=== PATIENT | male | born 1960 | race Caucasian/White ===

== ENCOUNTER 2016-09-06 12:05 | Inpatient (IN) | payer OTHER, MEDICAID ==
[~2016-09-06] VITALS: Ht 175.3 cm; Wt 76.0 kg
[2016-09-06] VITALS (19 sets, daily range): BP systolic 149–171; BP diastolic 55–90; PULSE 70–126; RESP 22–24; TEMP 93; Ht 175.3 cm; Wt 76.0 kg
[~2016-09-06 12:05] MED LIST: ETOMIDATE 20 MG INJ ONE; LIDOCAINE 100 MG SYRINGE ONE; VECURONIUM 10 MG VIAL ONE
[2016-09-06] MEDS ORDERED: WARF3TAB PO (12:16)
[2016-09-06] MEDS ORDERED: SILD50TA36 PO (12:16)
[2016-09-06] MEDS ORDERED: PRAV20TA63 PO (12:17)
[2016-09-06] MEDS ORDERED: PANT40TA3 PO (12:17)
[2016-09-06] MEDS ORDERED: LANT3I SC (12:17)
[2016-09-06] MEDS ORDERED: TORS100T15 PO (12:17)
[2016-09-06] MEDS ORDERED: CARV25TA79 PO (12:18)
[2016-09-06] MEDS ORDERED: COLC0.6T6 PO (12:18)
[2016-09-06] MEDS ORDERED: ALLO300T2 PO (12:18)
[2016-09-06] MEDS ORDERED: POTA8CAP PO (12:19)
[2016-09-06] MEDS ORDERED: SOD CHLORIDE 0.9% 500 ML IV STA (12:19)
[2016-09-06] MEDS ORDERED: FER325 PO (12:19)
[2016-09-06] MEDS ORDERED: ASC250 PO (12:21)
[2016-09-06] MEDS ORDERED: INSU200I SQ (12:21)
[2016-09-06 12:26] LABS: ADD SCAN DIFF NO
[2016-09-06 12:29] LABS: BASOPHILS % 0.4 % (0.0-2.0); EOSINOPHILS # 0.3 10^3/ul (0.0-0.5); EOSINOPHILS % 2.7 % (0.0-7.0); HEMATOCRIT 35.9 % (42.0-52.0); HEMOGLOBIN 11.7 g/dl (14.0-18.0); LYMPHOCYTES # 2.8 10^3/ul (0.8-2.9); LYMPHOCYTES % 24.5 % (15.0-51.0); MEAN CORPUSCULAR HEMOGLOBIN 28.8 pg (29.0-33.0); MEAN CORPUSCULAR HGB CONC 32.6 g/dl (32.0-37.0); MEAN CORPUSCULAR VOLUME 88.4 fl (82.0-101.0); MEAN PLATELET VOLUME 10.4 fl (7.4-10.4); MONOCYTE # 1.3 10^3/ul (0.3-0.9); MONOCYTES % 11.6 % (0.0-11.0); NEUTROPHIL # 6.8 10^3/ul (1.6-7.5); NEUTROPHILS % 60.2 % (39.0-77.0); PLATELET COUNT 196 10^3/UL (140-415); RED BLOOD COUNT 4.06 10^6/ul (4.70-6.10); RED CELL DISTRIBUTION WIDTH 16.6 % (11.5-14.5); WHITE BLOOD COUNT 11.3 10^3/ul (4.8-10.8)
[2016-09-06 12:44] LABS: INR 4.25; PROTIME 41.6 Sec (12.2-14.2); PT RATIO 3.3
[2016-09-06 12:45] LABS: PARTIAL THROMBOPLASTIN TIME 57.1 Sec (25.0-35.0)
--- NOTE | 2016-09-06 12:52 | RADRPT ---
PROCEDURE: CT brain without contrast CLINICAL INDICATION: Code stroke, unresponsive on blood thinners TECHNIQUE: CT of the brain without contrast was performed on a multidetector CT scanner, with multi planar reformats. One or more of the following dose reduction techniques were used: Automated expos ure control, adjustment in mA and / or kV according to patient size, use of iterative reconstructive technique. CTDIvol = 44 mGy; DLP = 720 mGy-cm. COMPARISON: None available FINDINGS: There is a large area of heterogeneous, acute intraparenchymal hemorrhage in the left frontal - radha etal lobes measuring up to approximately 9.2 x 5.5 x 6.1 cm in extent with mild surrounding edema. Hemorrhage extends into the lateral ventricles, left greater than right, and third ventricle. There is significant mass effect with partial effacement of the lateral ventricles, left greater than rig ht, and third ventricle, and rightward subfalcine herniation with shift of the midline structures me asuring up to approximately 1.9 cm. Cerebral sulci are effaced and the basal cisterns are partially effaced. There is moderate right and mild left temporal horn dilation which may reflect hydrocepha david/trapped ventricles. No extra-axial fluid collection is seen. There is a small area of encephalomalacia in the right fro ntal lobe. There is a wide right frontal - parietal - temporal craniotomy. Atherosclerotic calcifi cations of the intracranial internal carotid arteries are noted. Mastoid air cells and imaged paran johnny sinuses grossly clear. IMPRESSION: 1. Large acute left frontal-parietal intraparenchymal hemorrhage with extension into the left and t he right lateral and third ventricles. 2. Rightward subfalcine herniation, with 1.9 cm rightward midline shift. 3. Moderate right and mild left temporal horn dilation which may reflect hydrocephalus/trapped vent ricles. 4. Status post right frontal - temporal - parietal craniotomy with underlying small area of encepha lomalacia in the right frontal lobe. Critical results were called to Dr. Brewer at 12:43 p.m., 09/06/2016 RPTAT: EE .Malachi Gutierrez MD, MD Date Time Electronically viewed and signed by .Malachi Gutierrez MD, MD on 09/06/2016 12:51 .O/
[2016-09-06] MEDS ORDERED: ALBU8.5H3 INH (12:53)
[2016-09-06] MEDS ORDERED: ASPI-664 PO (12:53)
[2016-09-06] MEDS ORDERED: ATOR40TA68 PO (12:54)
[2016-09-06] MEDS ORDERED: BUME2TAB PO (12:54)
[2016-09-06] MEDS ORDERED: [UNRECOGNIZED DRUG - CODE] PO (12:55)
[2016-09-06] MEDS ORDERED: GABA100C14 PO (12:58)
[2016-09-06] MEDS ORDERED: MANNITOL 25% 50 ML INJ IV* ONE (13:00)
[2016-09-06] MEDS ORDERED: PHYTONADIONE 10 MG in DEXTROSE 5% 50 ML IVPB ONE (13:00)
[2016-09-06] MEDS ORDERED: LEVETIRACETAM 1000 MG (PMX) 100 ML IVPB ONE (13:00)
[2016-09-06] MEDS ORDERED: [UNRECOGNIZED DRUG - OTHER] PO (13:03)
[2016-09-06] MEDS ORDERED: METO25TA4 PO (13:04)
[2016-09-06] MEDS ORDERED: TRAZ50TA18 PO (13:06)
[2016-09-06] MEDS ORDERED: SILD20TA PO (13:06)
[2016-09-06] MEDS ORDERED: FOLI1CAP PO (13:06)
--- NOTE | 2016-09-06 13:06 | RADRPT ---
PROCEDURE: XR Chest. CLINICAL INDICATION: Possible stroke. TECHNIQUE: Single frontal view of the chest was obtained. COMPARISON: None FINDINGS: The soft tissues are normal. A mediastinotomy was performed. There is a dual chamber cardiac pacem michael implanted over the upper right chest wall with electrode leads projecting at the level of the r ight atrium and right ventricle. Vascular processes are identified in place. The left ventricle is enlarged. The cardiomediastinal silhouette and hilar structures are otherwise normal. The pulmonar y vasculature is equilibrated. There are vascular calcifications in the aortic arch. An endotrache al tube is well-positioned at T3-T4. An NG tube is positioned with its distal tip at the level of t he GE junction and should be advanced further into the stomach. Increased interstitial markings in t he right lower lung field are likely result of atelectasis. There is some thickening on the right p leural space in the area of the periphery of the minor fissure. The costophrenic angles are normal. IMPRESSION: 1. Cardiomegaly with equilibration the pulmonary vasculature which may reflect mild pulmonary venous obstruction. 2. Thickening of the minor fissure and thickening of the lower right pleural space. Findings could relate to either pleural scarring or small effusion. 3. Atherosclerotic vascular disease. 4. Dual chamber cardiac pacemaker. 5. Status post median sternotomy with prosthetic heart valve replacements. 7. The NG tube breast above the GE junction and should be advanced 7 or 8 cm for better positioning distal to the GE junction. 8. The endotracheal tube is well-positioned T3-T4. 9. Findings were phoned to the emergency room to Dr. Brewer. RPTAT:AAJJ Physician Shoaib Date Time Electronically viewed and signed by Physician Shoaib on 09/06/2016 13:05 /
[2016-09-06] MEDS ORDERED: WARF5TAB72 PO (13:07)
[2016-09-06 13:12] LABS: CALCIUM 9.7 mg/dl (8.4-10.2); CREATININE 3.56 mg/dl (0.61-1.24); TROPONIN-I 0.055 ng/ml (0.00-0.12)
[2016-09-06 13:18] LABS: ADD UMIC YES; URINE BILIRUBIN (Dip) NEGATIVE (NEGATIVE); URINE BLOOD (Dip) 2+ (NEGATIVE); URINE COLOR LT. YELLOW (YELLOW); URINE GLUCOSE (Dip) NEGATIVE (NEGATIVE); URINE KETONES (Dip) NEGATIVE (NEGATIVE); URINE LEUKOCYTE ESTERASE (Dip) NEGATIVE (NEGATIVE); URINE NITRITE (Dip) NEGATIVE (NEGATIVE); URINE TOTAL PROTEIN (Dip) TRACE (NEGATIVE); URINE UROBILINOGEN (Dip) 0.2 E.U./dL (0.1-1.0)
[2016-09-06 13:27] LABS: POTASSIUM 2.5 mmol/L (3.5-5.1)
[2016-09-06] MEDS ORDERED: MANNITOL 20% 250 ML IV ONE ×2 (13:30→15:00)
[2016-09-06] MEDS ORDERED: MANNITOL 25% IV ONE (13:30)
[2016-09-06 13:39] LABS: BARBITURATES NEGATIVE (NEGATIVE); BENZODIAZEPINES NEGATIVE (NEGATIVE); CANNABINOIDS NEGATIVE (NEGATIVE); COCAINE NEGATIVE (NEGATIVE); OPIATES NEGATIVE (NEGATIVE)
[2016-09-06 13:41] LABS: AADO2 Arterial 155.8 mmHg (7.0-24.0); Allen Test ACCEPTAB; Arterial Base Excess 8.4 mmol/L (-3.0-3); Arterial COHb 0.6 % (0.0-3.0); Arterial Fraction of Oxyhgb 98.9 % (93.0-99.0); Arterial HCO3 28.9 mmol/L (22.0-26.0); Arterial MetHb 0.5 % (0.0-1.5); Arterial Total Hemglobin 11.7 g/dl (12.0-18.0); MODE VENT - AC
--- NOTE | 2016-09-06 13:47 | ERA ---
ER Documentation Chief Complaint Date/Time DATE: 09/06/16 TIME: 12:47 Chief Complaint facial and right sided droop since 8am, present unresponsive HPI This is a 56-year-old male who, according to his , says that he woke up around 8:00 this morning and they had breakfast together. She stated he complained that he did not feel well around 10:00 so he went to get on the couch to lay down. He wanted to check his blood sugars so she gave him the glucose monitor and she said that he had a hard time understanding how to use it and was starting to get confused. She said over the course of an hour his mental status started to decline with confused speech and garbled speech and right-sided deficits. This apparently occurred over the course of an hour from 10 AM to 11 AM. When he arrives by EMS he is sonorous with a GCS of 3. Patient had a mechanical mitral valve replaced a few years ago then had an aortic valve replaced with a cow valve at [facility] on July 24. He was discharged after 2 weeks then return there for anemia and was discharged last Saturday after some blood transfusions. The says his INR was checked yesterday and was 3.0 ROS All systems reviewed and are negative except as per history of present illness. Medications Home Meds Reported Medications Ascorbic Acid (Vitamin C) 250 Mg Tab, 250 MG PO DAILY, TAB 09/06/16 Insulin Lispro (Humalog Kwikpen) 200 Unit/1 Ml Insuln.pen, 10 UNIT SQ PRN Y for BEFORE MEALS, EA 09/06/16 Ferrous Sulfate* (Ferrous Sulfate*) 325 Mg Tabec, 325 MG PO DAILY, TAB 09/06/16 Potassium Chloride* (Potassium Chloride*) 8 Meq Capsule.er, 8 MEQ PO DAILY, CAP 09/06/16 Colchicine* (Colcrys*) 0.6 Mg Tablet, 0.6 MG PO DAILY Y for GOUT, TAB 09/06/16 Allopurinol* (Allopurinol*) 300 Mg Tablet, 300 MG PO DAILY, TAB 09/06/16 Carvedilol* (Carvedilol*) 25 Mg Tablet, 25 MG PO BID, #60 TAB 09/06/16 Insulin Glargine* (Lantus*) 100 Unit/Ml Soln, 30 UNIT SC QHS, #1 VIAL 09/06/16 Pravastatin Sodium* (Pravastatin Sodium*) 20 Mg Tablet, 20 MG PO HS, TAB 09/06/16 Pantoprazole* (Protonix*) 40 Mg Tablet.dr, 40 MG PO BID, TAB 09/06/16 Torsemide (Torsemide) 100 Mg Tablet, 100 MG PO TID, TAB 09/06/16 Sildenafil Citrate* (Viagra*) 50 Mg Tablet, 50 MG PO TID, TAB 09/06/16 Warfarin Sodium* (Coumadin*) 3 Mg Tablet, 3 MG PO DAILY, TAB 09/06/16 FmHx Family History: No coronary disease Physical Exam Vitals Vital Signs Date Time Temp Pulse Resp B/P Pulse Ox O2 Delivery O2 Flow Rate FiO2 09/06/16 12:37 87 16 167/98 93 Mechanical Ventilator 09/06/16 12:37 Bag Valve Mask 09/06/16 12:37 88 16 100 100 09/06/16 12:24 107 16 165/125 98 Physical Exam Const: Well-developed, well-nourished Head: Atraumatic, normocephalic Eyes: Normal Conjunctiva, bilateral pupils mid range and slow to react , normal sclera, no nystagmus ENT: Normal External Ears, Nose and Mouth, moist mucus membranes. Neck: No meningismus, no lymphadenopathy.] Resp: Clear to auscultation bilaterally, no wheezing, rhonchi, rales, sonorous respiration Cardio: Irregular rate and rhythm, no murmurs, S1 S2 present Abd: Soft, non distended. Normal bowel sounds, no pulsitile abdominal masses or bruits Skin: No petechiae or rashes, no ecchymosis , no maculopapular rash Back: [Normal inspection Ext: No cyanosis, or edema,normal inspection, vascularly intact x 4 Neur: [GCS of 3, obtunded Psych: Unable to obtain Result Diagram: 09/06/16 1215 Results 24 hrs Laboratory Tests Test 09/06/16 12:15 White Blood Count 11.310^3/ul Red Blood Count 4.0610^6/ul Hemoglobin 11.7g/dl Hematocrit 35.9% Mean Corpuscular Volume 88.4fl Mean Corpuscular Hemoglobin 28.8pg Mean Corpuscular Hemoglobin Concent 32.6g/dl Red Cell Distribution Width 16.6% Platelet Count 85054^3/UL Mean Platelet Volume 10.4fl Neutrophils % 60.2% Lymphocytes % 24.5% Monocytes % 11.6% Eosinophils % 2.7% Basophils % 0.4% Nucleated Red Blood Cells % 0.0/100WBC Neutrophils # 6.810^3/ul Lymphocytes # 2.810^3/ul Monocytes # 1.310^3/ul Eosinophils # 0.310^3/ul Basophils # 0.010^3/ul Nucleated Red Blood Cells # 0.010^3/ul Prothrombin Time 41.6Sec Prothrombin Time Ratio 3.3 INR International Normalized Ratio 4.25 Activated Partial Thromboplast Time 57.1Sec Current Medications Medications (Trade) Dose Ordered Sig/Jazzmine Route PRN Reason Start Time Stop Time Status Last Admin Dose Admin Sodium Chloride 500 ml @ 500 mls/hr Q1H STAT IV 09/06/16 12:19 09/06/16 13:18 09/06/16 12:36 Levetiracetam (Keppra 1,000mg/ 100ml (Pmx)) 100 ml @ 400 mls/hr ONCE ONCE IVPB 09/06/16 13:00 09/06/16 13:14 09/06/16 12:43 Procedures/MDM KG: Rate/Rhythm: Atrial fibrillation with RVR heart rate 138, inferior and anterior ST changes/depression QRS, ST, QT: NORMAL ME, QRS, QT] Impression: A. fib with RVR Due to patient's inability to maintain an airway with a GCS of 3, his gag is still intact. The decision was made to intubate him. Endotracheal Intubation by me: Pre assessment performed. See preceding note for details. Pre-oxygenation performed with 100% oxygen RSI: Performed w/o complication or hypoxic events. Medications as ordered. Blade: Mac 4 ET Tube: 7.0 cm Depth: 24 cm at the lip Intubation confirmed by colorimetric CO2, equal breath sounds, quiet over the stomach. PROCEDURE: CT brain without contrast CLINICAL INDICATION: Code stroke, unresponsive on blood thinners TECHNIQUE: CT of the brain without contrast was performed on a multidetector CT scanner, with multiplanar reformats. One or more of the following dose reduction techniques were used: Automated exposure control, adjustment in mA and / or kV according to patient size, use of iterative reconstructive technique. CTDIvol = 44 mGy; DLP = 720 mGy-cm. COMPARISON: None available FINDINGS: There is a large area of heterogeneous, acute intraparenchymal hemorrhage in the left frontal - parietal lobes measuring up to approximately 9.2 x 5.5 x 6.1 cm in extent with mild surrounding edema. Hemorrhage extends into the lateral ventricles, left greater than right, and third ventricle. There is significant mass effect with partial effacement of the lateral ventricles, left greater than right, and third ventricle, and rightward subfalcine herniation with shift of the midline structures measuring up to approximately 1.9 cm. Cerebral sulci are effaced and the basal cisterns are partially effaced. There is moderate right and mild left temporal horn dilation which may reflect hydrocephalus/ trapped ventricles. No extra-axial fluid collection is seen. There is a small area of encephalomalacia in the right frontal lobe. There is a wide right frontal - parietal - temporal craniotomy. Atherosclerotic calcifications of the intracranial internal carotid arteries are noted. Mastoid air cells and imaged paranasal sinuses grossly clear. IMPRESSION: 1. Large acute left frontal-parietal intraparenchymal hemorrhage with extension into the left and the right lateral and third ventricles. 2. Rightward subfalcine herniation, with 1.9 cm rightward midline shift. 3. Moderate right and mild left temporal horn dilation which may reflect hydrocephalus/trapped ventricles. 4. Status post right frontal - temporal - parietal craniotomy with underlying small area of encephalomalacia in the right frontal lobe. Critical results were called to Dr. Light at 12:43 p.m., 09/06/2016 RPTAT: EE .Malachi Gutierrez MD, MD Date Time Electronically viewed and signed by .Malachi Gutierrez MD, MD on 09/06/2016 12:51 .O/ CC: TREVOR LIGHT DO Spoke with Dr. East of neurosurgery. He reviewed the CT scan with me on the phone. He instructed me to give 50 g of mannitol, give 150 cc of 3% normal saline followed by 50 cc an hour drip, keep head of bed elevated, hyperventilate and try to keep PCO2 at [address] Asked me to order CT scan of head for 630 7:00 tonight Central Line Placement by me: Patient consented, sterilely draped, full prep, gown, glove, mask, time out performed. Anesthesia: 1% lidocaine locally Location: Right femoral Device: Multiple lumen Technique: Seldinger technique. Secured with suture. Results: Venous return from all ports with easy saline flush. No complications. XOXOXO Guide wire retrieved and disposed of. PROCEDURE: XR Chest. CLINICAL INDICATION: Possible stroke. TECHNIQUE: Single frontal view of the chest was obtained. COMPARISON: None FINDINGS: The soft tissues are normal. A mediastinotomy was performed. There is a dual chamber cardiac pacemaker implanted over the upper right chest wall with electrode leads projecting at the level of the right atrium and right ventricle. Vascular processes are identified in place. The left ventricle is enlarged. The cardiomediastinal silhouette and hilar structures are otherwise normal. The pulmonary vasculature is equilibrated. There are vascular calcifications in the aortic arch. An endotracheal tube is well-positioned at T3-T4. An NG tube is positioned with its distal tip at the level of the GE junction and should be advanced further into the stomach. Increased interstitial markings in the right lower lung field are likely result of atelectasis. There is some thickening on the right pleural space in the area of the periphery of the minor fissure. The costophrenic angles are normal. IMPRESSION: 1. Cardiomegaly with equilibration the pulmonary vasculature which may reflect mild pulmonary venous obstruction. 2. Thickening of the minor fissure and thickening of the lower right pleural space. Findings could relate to either pleural scarring or small effusion. 3. Atherosclerotic vascular disease. 4. Dual chamber cardiac pacemaker. 5. Status post median sternotomy with prosthetic heart valve replacements. 7. The NG tube breast above the GE junction and should be advanced 7 or 8 cm for better positioning distal to the GE junction. 8. The endotracheal tube is well-positioned T3-T4. 9. Findings were phoned to the emergency room to Dr. Light. RPTAT:AAJJ Austin Tarik, Physician Date Time Electronically viewed and signed by Austin Montanez Physician on 09/06/2016 13:05 JM/ CC: TREVOR LIGHT DO Patient's heart rate is currently 90 and in A. fib. Blood pressure is 113/80. Patient scheduled for repeat CT scan at 630 tonight. We will admit to the ICU. He is getting 4 units of fresh frozen plasma and vitamin K 10 mg IV. His hypo-coagulative statements be corrected before he can go to the operating room if he goes We will admit to the ICU Critical Care Time: 45 minutes Treatments/Evaluations: Close monitoring and treatment of unstable vital signs, cardiorespiratory, and neurologic status, while maintaining tight balance of fluid, respiratory, and cardiac interventions. This time includes discussing the case with the patient and the patient's family. This time does not include all procedures stated elsewhere in this record. This time also includes reviewing old records, labs and radiological studies. This time includes examining and re-examining the patient. Additionally, this time also includes arranging care with admitting and consulting physicians. Departure Diagnosis: Primary Impression: Intracranial hemorrhage Condition: Critical TREVOR LIGHT DO September 06, 2016 12:57
[2016-09-06] MEDS: NACL 3% 500 ML IV SCH ×3 (13:50→23:25)
[2016-09-06] MEDS ORDERED: POTASSIUM CHLORIDE 30 MEQ in DEXTROSE 5% 250 ML IVPB ONE (16:00)
[2016-09-06] MEDS ORDERED: morphine 2 MG INJ IV PRN (17:00)
[2016-09-06] MEDS ORDERED: NACL 0.9% 3 ML SYG IV SCH (17:00)
[2016-09-06] MEDS ORDERED: ONDANSETRON 4 MG INJ IV PRN (17:00)
[2016-09-06] MEDS ORDERED: DEXTROSE 50% 50 ML SYRINGE IV PRN ×2 (17:00)
[2016-09-06] MEDS: ACCU-CHEK XX SCH ×7 (17:00→23:26)
[2016-09-06 17:26] LABS: INR 2.04; PROTIME 23.2 Sec (12.2-14.2); PT RATIO 1.8
[2016-09-06 17:27] LABS: CREATININE 3.16 mg/dl (0.61-1.24); PARTIAL THROMBOPLASTIN TIME 42.8 Sec (25.0-35.0)
[2016-09-06 17:28] LABS: CALCIUM 8.6 mg/dl (8.4-10.2)
--- NOTE | 2016-09-06 17:34 | HP ---
DATE OF ADMISSION: 09/06/2016 CHIEF COMPLAINT: Altered mental status. HISTORY OF PRESENT ILLNESS: The patient is a 56-year-old male with a history of rheumatic heart dis ease, status post mitral valve replacement as well as aortic valve replacement and tricuspid valve r epair. The patient also has a history of subdural hematoma in 2013. The patient has been on Coumad in for his valve repairs over the past 15 years. The patient also has a history of dyslipidemia as well as insulin-requiring diabetes, hypertension and recent anemia secondary to bleeding in the smal l intestine. The patient typically follows up at [facility]. The patient became altered this morning blake or to lunch, and family noticed that he was acting strangely. He was brought to the ED where he was noted to be obtunded and was intubated for airway protection. He had a brain CT that showed a larg e acute left frontoparietal intraparenchymal hemorrhage with extension into the left and right later al and third ventricles. There was a rightward subfalcine herniation with 1.9 cm rightward midline shift. Dr. East of neurosurgery was contacted in the ED, and he recommended mannitol and a repeat CT head. History is obtained from the patient's family who is bedside. The patient is currently in tubated and his cardiac rhythm is paced. He does have a history of pacemaker placement in the past. PAST MEDICAL AND SURGICAL HISTORY: Rheumatic heart disease with mitral valve repair with mechanical valve, TVAR with bovine valve and then tricuspid valve repair. Pacemaker placement, craniotomy for subdural hematoma, insulin-requiring diabetes, dyslipidemia, hypertension, GI bleed. HOME MEDICATIONS: 1. Albuterol. 2. Aspirin. 3. Lipitor. 4. Hydrochlorothiazide. 5. Ferrous sulfate. 6. Gabapentin. 7. Lantus. 8. Metoprolol. 9. Protonix. 10. Revatio. 11. Trazodone. 12. Coumadin. 13. Humalog 5 units with meals. 14. Bumex 2 mg p.o. b.i.d. ALLERGIES: NO KNOWN DRUG ALLERGIES. FAMILY HISTORY: Once again family history is noncontributory. SOCIAL HISTORY: No reports of alcohol, tobacco, or drugs. REVIEW OF SYSTEMS: A 12-point review of systems cannot be obtained secondary to patient's encephalo marlene. PHYSICAL EXAMINATION: VITAL SIGNS: Temperature is 92.2, pulse 124, respiratory rate is 22, BP is 110/72, saturation 96% o n mechanical ventilation. GENERAL: Nonverbal, intubated. HEENT: Normocephalic, atraumatic. CHEST: Clear to auscultation. CARDIOVASCULAR: Tachycardic. ABDOMEN: Nondistended, soft. EXTREMITIES: No clubbing, cyanosis, or edema. LABORATORY TESTS: White count is 11.3, hemoglobin 11.7, platelets are 196. Chemistry: Sodium is 1 30, potassium is 2.5, chloride is 82, carbon dioxide 34, anion gap 17, BUN is 139, creatinine is 2.5 6, glucose 298. Troponin is 0.05. INR is 4.5. UA is within normal limits except for 2+ hemoglobin . U-tox is negative. DIAGNOSTIC DATA: Chest x-ray reveals cardiomegaly with a of the pulmonary vasculature, [place] of the minor fissure and again in the right pleural space, atherosclerotic vascular disease, du al chamber cardiac pacemaker. He has prosthetic heart valve replacements. ET tube is well position ed. Brain CT shows a large acute left frontoparietal intraparenchymal hemorrhage with extension int o the left and right lateral and third ventricles, rightward subfalcine herniation with a 1.9 cm rig htward midline shift, moderate mid left temporal horn dilation, which may reflect hydrocephalus ____ _ ventricles status post right frontotemporal parietal craniotomy with underlying small area of ence phalomalacia in the right frontal lobe. ASSESSMENT AND PLAN: 1. Acute encephalopathy secondary to intracranial hemorrhage. The patient does have herniation. Jose Cruz East of Neurosurgery has been consulted. Has recommended mannitol and will repeat a CT scan. W ill treat with Keppra for seizure prophylaxis. Will follow up neurosurgery recommendations. We ton l admit to ICU. 2. Acute respiratory failure secondary to intracranial hemorrhage. Continue vent support. Will co nsult pulmonology. 3. Hypokalemia. We will replete. 4. Chronic kidney disease. The patient does have a reported history of chronic kidney disease in t he past, baseline creatinine is not known. 5. Leukocytosis, likely reactive to intracranial hemorrhage. 6. Anemia, stable. 7. History of multiple valve replacements on Coumadin. Will hold Coumadin secondary to intracrania l hemorrhage. 8. Diabetes. Will treat with a sliding scale as well as Lantus scheduled. 9. Hypertension. Blood pressure is on the lower side. We will hold p.o. medications. 10. Dyslipidemia. Hold p.o. medications. 11. Prophylaxis sequential compression stockings. Dictated By: SUZAN DREW MD BS/NTS Conf#: [id number] DID#: [id number]
[2016-09-06 17:37] LABS: POTASSIUM 2.1 mmol/L (3.5-5.1)
[2016-09-06] MEDS ORDERED: SOD CHLORIDE 0.9% 1,000 ML IV SCH (20:00)
--- NOTE | 2016-09-06 20:02 | RADRPT ---
PROCEDURE: CT brain without contrast CLINICAL INDICATION: Intracranial hemorrhage. Follow-up evaluation TECHNIQUE: A CT of the brain was performed utilizing axial sections from the skull base through th e vertex without contrast. Sagittal and coronal images were also reformatted. The exam CTDIvol = 44. 26 mGy and DLP = 720.23 mGy-cm. COMPARISON: CT 09/06/2016 at 12:29 p.m. FINDINGS: Large intraparenchymal hemorrhage involving the superior left frontal and left parietal lobes is now estimated at 9.3 x 5.9 x 6 cm, the volume of the hemorrhage estimated at 177 cc, slightly increased from the 164 cc compared to earlier the same day. Interval increase in the amount of intraventricu lar blood compared to the prior study, the blood now layering within the dilated occipital horn of t he right lateral ventricle. Dilatation of the right greater than left temporal horn lateral ventric les is present, slightly worse consistent with hydrocephalus. Subfalcine herniation is again noted with midline shift to the right approximated at 1.9 cm, unchanged. With the rather there is right e yanira is again noted surrounding the left cerebral hemisphere hemorrhage, effacement of the left-side d sulci is present. Increased low attenuation involving the periventricular white matter of the rig ht occipital lobe is concerning for a transependymal flow of cerebrospinal fluid. There is no density alteration within the migel or cerebellum. The fourth ventricle remains midline. Prior right-sided craniotomy is again identified with associated postoperative encephalomalacia of t he right frontal lobe.. The mastoid air cells and visualized paranasal sinuses are clear. RPTAT:HJJR IMPRESSION: 1. Compared to the prior study obtained at 12:29 p.m, the volume of the large left frontal and radha etal lobe intraparenchymal hemorrhage has increased by approximately 13 cc. 2. Decompression into the ventricular system with interval increase in the amount of intraventricul ar hemorrhage, blood now layering within the dilated occipital horn of the right lateral ventricle w ith increased dilatation of the right lateral ventricle consistent with hydrocephalus. 2. Low attenuation adjacent to the occipital horn of the right lateral ventricle is present unable to exclude transependymal flow of CSF. 3. Subfalcine herniation and midline shift to the right of approximately 1.9 cm has not changed com pared to the prior study. 4. Right-sided craniotomy changes are again noted with small areas of postoperative encephalomalaci a in the right frontal lobe. Physician Rex Date Time Electronically viewed and signed by Too Malone Physician on 09/06/2016 20:01 /
[2016-09-06] MEDS ORDERED: POTASSIUM CHLORIDE 250 ML IVPB ONE (21:00)
[2016-09-06 21:03] LABS: INR 1.65; PROTIME 19.6 Sec (12.2-14.2); PT RATIO 1.5
[2016-09-06] MEDS: INSULIN HUMAN REGULAR 100 UNIT in SOD CHLORIDE 0.9% 99 ML IV SCH (21:04)
[2016-09-06 21:10] LABS: POTASSIUM 2.4 mmol/L (3.5-5.1)
[2016-09-06] MEDS ORDERED: SOD CHLORIDE 0.9% 250 ML IV* ONE (21:56)
[2016-09-06] MEDS: LEVETIRACETAM 500 MG (PMX) 100 ML IVPB SCH (22:24)
[2016-09-06] MEDS ORDERED: LABETALOL HCL 20MG INJ IV ONE (23:00)
[2016-09-07] VITALS (91 sets, daily range): BP systolic 52–160; BP diastolic 42–94; PULSE 70–208; RESP 11–25
[2016-09-07] MEDS: ACCU-CHEK XX SCH ×17 (00:18→16:18)
[2016-09-07] MEDS ORDERED: LABETALOL HCL 20MG INJ IV ONE (02:00)
[2016-09-07 02:07] LABS: CALCIUM 8.8 mg/dl (8.4-10.2); CREATININE 3.01 mg/dl (0.61-1.24)
[2016-09-07 02:09] LABS: POTASSIUM 2.7 mmol/L (3.5-5.1)
[2016-09-07] MEDS: NACL 3% 500 ML IV SCH (02:36)
[2016-09-07] MEDS ORDERED: POTASSIUM CHLORIDE 250 ML IVPB ONE ×2 (03:00→08:00)
[2016-09-07] MEDS ORDERED: NACL 3% 500 ML IV SCH (03:16)
[2016-09-07 05:27] LABS: ADD SCAN DIFF NO
[2016-09-07 05:56] LABS: INR 1.32; PROTIME 16.5 Sec (12.2-14.2); PT RATIO 1.3
[2016-09-07 05:58] LABS: ALBUMIN 4.4 g/dl (3.3-4.9)
[2016-09-07 06:01] LABS: CREATININE 2.81 mg/dl (0.61-1.24); TOTAL PROTEIN 8.8 g/dl (6.1-8.1)
[2016-09-07 06:02] LABS: CALCIUM 9.1 mg/dl (8.4-10.2); CHOL/HDL RATIO 2.4 RATIO; MAGNESIUM 3.2 mg/dl (1.7-2.5); PHOSPHORUS 1.2 mg/dl (2.5-4.9)
[2016-09-07 06:03] LABS: ABNORMAL IP MESSAGE 1; BASOPHILS % 0.1 % (0.0-2.0); HEMATOCRIT 28.8 % (42.0-52.0); HEMOGLOBIN 9.2 g/dl (14.0-18.0); LYMPHOCYTES # 0.4 10^3/ul (0.8-2.9); LYMPHOCYTES % 3.6 % (15.0-51.0); MEAN CORPUSCULAR HGB CONC 31.9 g/dl (32.0-37.0); MEAN CORPUSCULAR VOLUME 90.9 fl (82.0-101.0); MEAN PLATELET VOLUME 10.1 fl (7.4-10.4); MONOCYTE # 1.2 10^3/ul (0.3-0.9); MONOCYTES % 11.7 % (0.0-11.0); NEUTROPHIL # 8.4 10^3/ul (1.6-7.5); NEUTROPHILS % 84.2 % (39.0-77.0); RED BLOOD COUNT 3.17 10^6/ul (4.70-6.10); RED CELL DISTRIBUTION WIDTH 17.2 % (11.5-14.5)
[2016-09-07] MEDS: PANTOPRAZOLE 40 MG INJ IV SCH (07:47)
[2016-09-07] MEDS: SOD CHLORIDE 0.45% 1,000 ML IV SCH ×2 (07:47→20:39)
[2016-09-07] MEDS: LEVETIRACETAM 500 MG (PMX) 100 ML IVPB SCH ×2 (08:23→20:38)
[2016-09-07 09:03] LABS: PLATELET COUNT 106 10^3/UL (140-415)
[2016-09-07 09:26] LABS: AADO2 Arterial 101.1 mmHg (7.0-24.0); Allen Test ACCEPTAB; Arterial Base Excess 2.9 mmol/L (-3.0-3); Arterial COHb 0.8 % (0.0-3.0); Arterial HCO3 25.3 mmol/L (22.0-26.0); Arterial MetHb 0.3 % (0.0-1.5); Arterial Total Hemglobin 11.8 g/dl (12.0-18.0); MODE VENT - AC
[2016-09-07] MEDS: INSULIN HUMAN REGULAR 100 UNIT in SOD CHLORIDE 0.9% 99 ML IV SCH (11:00)
[2016-09-07 12:53] LABS: POTASSIUM 3.6 mmol/L (3.5-5.1)
[2016-09-07 12:55] LABS: CREATININE 2.47 mg/dl (0.61-1.24)
[2016-09-07 12:56] LABS: CALCIUM 9.3 mg/dl (8.4-10.2)
--- NOTE | 2016-09-07 14:42 | CONS ---
DATE OF ADMISSION: 09/06/2016 DATE OF CONSULTATION: 09/07/2016 TYPE OF CONSULTATION: Pulmonary REASON FOR CONSULTATION: Mechanical ventilation. HISTORY OF PRESENT ILLNESS: This is an unfortunate 56-year-old gentleman with multiple medical prob lems including rheumatic heart disease with mitral valve replacement, aortic valve replacement and t ricuspid valve repair, came in with altered mental status. Emergent CT of the head was performed an d demonstrated large left frontoparietal intraparenchymal hemorrhage with extension into the right a nd left ventricles with evidence of midline shift and herniation. Neurosurgery was contacted. Dr. Redd East evaluated the patient and given his critical condition, no neurosurgical intervention was performed. The patient's family were informed of very poor prognosis. Currently, the patient kyleigh ins intubated on mechanical ventilation. PAST MEDICAL HISTORY: Rheumatic heart disease with aortic valve replacement, mitral valve replaceme nt and tricuspid valve repair, pacemaker in place, history of craniotomy for prior subdural hematoma , history of GI bleed, insulin-dependent diabetes. MEDICATIONS: Per chart. ALLERGIES: NONE. SOCIAL HISTORY: Nonsmoker, no alcohol, no history of drug use. FAMILY HISTORY: Noncontributory. REVIEW OF SYSTEMS: A 12-point review of systems currently unable to be performed. PHYSICAL EXAMINATION: GENERAL: Young gentleman, intubated on mechanical ventilation, appears comfortable at rest, no acut e distress. VITAL SIGNS: Currently afebrile, pulse is 130, blood pressure 125/74, O2 saturation 96% on FIO2 of 50%, orally intubated. CARDIAC: S1, S2, tachycardia. CHEST: Diminished air entry bilaterally. ABDOMEN: Soft, nontender. No guarding or rebound. EXTREMITIES: No cyanosis, clubbing, edema. NEUROLOGIC: Unable to assess. LABORATORY DATA: White count 10, hemoglobin 9.2, platelets of 106. Sodium 164, BUN 98, creatinine 2.47. ABG: pH 7.52, pCO2 of 31, PaO2 of 147. INR 1.32. Urinalysis unremarkable. Repeat CT of the brain shows increasing intracerebral bleed. IMPRESSION AND PLAN: Catastrophic intracerebral bleed with evidence of possible herniation in a pat ient with prosthetic aortic and mitral valves who had been on anticoagulation. The patient's neurol ogical status is significantly compromised. He will require continued monitoring. Continue mechani akhil ventilation. Currently, he continues mannitol per neurosurgery. Continue deep venous thrombosi s and gastrointestinal prophylaxis. Overall prognosis is very poor. Case will be discussed with primary team and neurosurgery. Dictated By: INDER MORROW/JOHN Conf#: [id number] DID#: [id number]
--- NOTE | 2016-09-07 14:48 | RADRPT ---
Echocardiogram Report Patient Name: WILFRIDO HALEY Gender: Male Date: 1960 Study Date: 07-Sep-2016 Medical Case Manager: Parul Linton RADHA Location: 119 Ref. Physician: SUZAN DREW Quality: Adequate Procedures: Transthoracic echocardiogram with complete 2D, M-Mode, and doppler examination. Indications: Cerebrovascular Accident. 2D/M Mode Doppler Measurement Value Normal Ranges Measurement Value Normal Ranges LVIDd 2D 5.6 3.5 - 5.6 cm MARGAUX Vmax 2.1 cm2 LVIDs 2D 4.4 2.1 - 4.1 cm MARGAUX VTI 2.1 cm2 LVPWd 2D 1.0 0.6 - 1.1 cm AV Mean Alexandro 1.8 m/sec IVSd 2D 1.2 0.6 - 1.1 cm AV Mean PG 14.9 mmHg AoR Diam 2D 1.9 2.0 - 3.7 cm AV Peak Alexandro 2.7 m/sec EDV 2D 153.9 cm3 AV Peak PG 30.1 mmHg ESV 2D 84.5 cm3 AV VTI 55.4 cm LA Dimen 2D 4.9 2.3 - 4.0 cm LVOT Mean Alexandro 1.3 m/sec LVOT Diam 2.0 cm LVOT Mean PG 7.9 mmHg LVOT Peak Alexandro 1.9 m/sec LVOT Peak PG 13.7 mmHg LVOT VTI 40.0 cm MV Peak Alexandro 2.6 m/sec MV Peak PG 26.6 mmHg MV Mean Alexandro 1.2 m/sec MV Mean PG 7.6 mmHg MV VTI 61.0 cm MVA VTI 2.0 cm TR Peak Alexandro 3.7 m/sec TR Peak PG 54.9 mmHg RVSP 70.0 mmHg Findings Left Ventricle: Normal left ventricular cavity size. Left ventricular wall thickness upper limits of normal. Mild global left ventricular systolic dysfunction. Ejection fraction is visually estimated at 45 %. Right Ventricle: Normal right ventricular size. Mild right ventricular systolic dysfunction. Linear artifact in right ventricle suggestive of catheter, pacer lead, or ICD lead. Left Atrium: There is moderate enlargement of left atrium. Right Atrium: The right atrium is normal in size. Mitral Valve: Mitral Valve Mechanical Prosthesis. Mitral valve Max Velocity 2.58 m/sec. MaxPG 26.60 mmHg. MeanPG 7.60 mmHg. Mitral Valve Area by Continuity2.00 cm2. Aortic Valve: Aortic Valve Bio Prosthesis. Aortic valve Max velocity 2.74 m/sec. Max PG 30.10 mmHg. Mean PG 14.90 mmHg. Aortic valve area 2.20 cm2. Trace aortic valve regurgitation. Tricuspid Valve: Estimated peak PA systolic pressure 70 mmHg. Tricuspid valve appears mildly thickened. There is moderate tricuspid regurgitation. Pulmonic Valve: Normal pulmonic valve appearance. There is mild pulmonic regurgitation. Pericardium: Normal pericardium with no significant pericardial effusion. Aorta: Normal aortic root. IVC: Dilated inferior vena cava without respiratory collapse, however, patient on ventilator. Conclusions 1.The left ventricle is normal in size with mildly reduced systolic function. There is global hypokinesis. 2.Estimated left ventricular ejection fraction of 45-50%. 3.Mitral valve mechanical prosthesis with moderately increased transvalvular gradient (mean gradient 7.8 mmHg). 4.Aortic valve bioprosthesis with mildly increased transvalvular gradient (peak velocity 2.74 m/s, mean gradient 14.9 mmHg). 5.Moderate left atrial enlargement. 6.Pulmonary hypertension with estimated RVSP of 70 mmHg. Electronically Signed By: Apolinar Blank 07-Sep-2016 14:48:31 -0700 Patient Name: WILFRIDO HALEY Study Date: 07-Sep-2016 [id number]
[2016-09-07] MEDS ORDERED: NORepinephrine 8MG/250 ML (PMX 250 ML ONE (16:43)
[2016-09-07] MEDS ORDERED: NORepinephrine 8MG/250 ML (PMX 250 ML IV SCH (17:00)
[2016-09-07] MEDS: PHENYLephrine 40 MG in DEXTROSE 5% 496 ML IV SCH (18:18)
--- NOTE | 2016-09-07 18:57 | PN ---
Date/Time of Note Date/Time of Note DATE: 09/07/16 TIME: 18:52 Assessment/Plan VTE Prophylaxis VTE Prophylaxis Intervention: SCD's Assessment/Plan Chief Complaint/Hosp Course 1. Intracranial hemorrhage with likely brain and neurogenic shock -Neurosurgery consultation appreciated, patient is a DNR -Continue pressor support 2. Acute respiratory failure secondary to intracranial hemorrhage -Continue vent support, pulmonology following 3. 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 Chronic kidney disease 5. History of multiple valve replacements on Coumadin -Will hold Coumadin secondary to intracranial hemorrhage. Prophylaxis-SCDs Problems: Subjective 24 Hr Interval Summary Subjective hx not possible: pt non-verbal Exam/Review of Systems Vital Signs Vitals Vital Signs Date Time Temp Pulse Resp B/P Pulse Ox O2 Delivery O2 Flow Rate FiO2 09/07/16 18:30 147 22 103/71 100 Mechanical Ventilator 09/07/16 17:46 40 09/07/16 16:00 97.5 Intake and Output 09/06/16 09/06/16 09/07/16 15:00 23:00 07:00 Intake Total 950 ml 1503.0 ml 1552.5 ml Output Total 1040 ml 1090 ml Balance 950 ml 463.0 ml 462.5 ml Exam Constitutional: non-verbal ENMT: intubated Respiratory: clear to auscultation Cardiovascular: regular rate and rhythm Gastrointestinal: soft, No distended Musculoskeletal: nl extremities to inspection Results Result Diagram: 09/07/16 0500 09/07/16 1200 Results 24 hrs Laboratory Tests Test 09/06/16 18:56 09/06/16 19:59 09/06/16 20:15 09/06/16 20:58 Bedside Glucose 391 H 413 *H 443 *H Prothrombin Time 19.6 H Prothrombin Time Ratio 1.5 INR International Normalized Ratio 1.65 Potassium Level 2.4 *L Glucose Level 438 *H Test 09/06/16 21:48 09/06/16 22:49 09/07/16 00:16 09/07/16 00:50 Bedside Glucose 424 *H 366 H 320 H Sodium Level 149 #H Potassium Level 2.7 *L Chloride Level 104 # Carbon Dioxide Level 25 Anion Gap 23 H Blood Urea Nitrogen 115 H Creatinine 3.01 H Glucose Level 306 H Calcium Level 8.8 Test 09/07/16 01:03 09/07/16 01:05 09/07/16 02:03 09/07/16 03:10 Bedside Glucose 286 H 275 H 272 H 241 H Test 09/07/16 04:00 09/07/16 05:00 09/07/16 05:32 09/07/16 05:52 Bedside Glucose 213 194 170 White Blood Count 10.0 Red Blood Count 3.17 #L Hemoglobin 9.2 #L Hematocrit 28.8 L Mean Corpuscular Volume 90.9 Mean Corpuscular Hemoglobin 29.0 Mean Corpuscular Hemoglobin Concent 31.9 L Red Cell Distribution Width 17.2 H Platelet Count 106 #L Mean Platelet Volume 10.1 Neutrophils % 84.2 H Lymphocytes % 3.6 L Monocytes % 11.7 H Eosinophils % 0.0 Basophils % 0.1 Nucleated Red Blood Cells % 0.0 Neutrophils # 8.4 H Lymphocytes # 0.4 L Monocytes # 1.2 H Eosinophils # 0.0 Basophils # 0.0 Nucleated Red Blood Cells # 0.0 Prothrombin Time 16.5 H Prothrombin Time Ratio 1.3 INR International Normalized Ratio 1.32 Sodium Level 156 H Potassium Level 3.0 L Chloride Level 111 H Carbon Dioxide Level 28 Anion Gap 20 H Blood Urea Nitrogen 109 H Creatinine 2.81 H Glucose Level 199 # Hemoglobin A1c 5.3 Calcium Level 9.1 Phosphorus Level 1.2 L Magnesium Level 3.2 H Total Bilirubin 1.0 Direct Bilirubin 0.00 Indirect Bilirubin 1.0 Aspartate Amino Transf (AST/SGOT) 79 H Alanine Aminotransferase (ALT/SGPT) 46 Alkaline Phosphatase 74 Total Protein 8.8 H Albumin 4.4 Globulin 4.40 H Albumin/Globulin Ratio 1.00 Triglycerides Level 79 Cholesterol Level 108 LDL Cholesterol, Calculated 48 HDL Cholesterol 44 Cholesterol/HDL Ratio 2.4 Lab Scanned Report BLOOD TRANSFUSION Test 09/07/16 06:54 09/07/16 07:50 09/07/16 09:14 09/07/16 09:43 Bedside Glucose 168 171 159 Blood Gas Specimen Source Blood arterial Arterial Blood Date Drawn 09/07/2016 7:43:53 AM Arterial Blood pH (Temp corrected) 7.521 H Arterial Blood pCO2 (Temp correct) 31.6 L Arterial Blood pO2 (Temp corrected) 147.8 H Arterial Blood HCO3 25.3 Arterial Blood Base Excess 2.9 Arterial Blood Oxygen Saturation 99.1 H Rafi Test ACCEPTAB Arterial Blood Gas Puncture Site Right Radial Arterial Blood Carboxyhemoglobin 0.8 Arterial Blood Methemoglobin 0.3 Blood Gas A-a O2 Differential 101.1 H Oxyhemoglobin Percent 98.0 Total Hemoglobin 11.8 L Blood Gas Temperature 37.0 Blood Gas Respiration Rate 22.0 Blood Gas Actual Respiration Rate 22 Blood Gas Modality VENT - AC FiO2 40.0 Blood Gas Tidal Volume 500.0 Blood Gas Low PEEP Setting 5.0 Blood Gas Notified Whom JLD Blood Gas Notified Time 09/07/2016 9:25:40 AM Test 09/07/16 10:21 09/07/16 11:46 09/07/16 12:00 09/07/16 12:37 Bedside Glucose 154 147 143 Sodium Level 164 *H Potassium Level 3.6 Chloride Level 122 H Carbon Dioxide Level 28 Anion Gap 18 H Blood Urea Nitrogen 98 H Creatinine 2.47 H Glucose Level 158 Calcium Level 9.3 Test 09/07/16 13:47 09/07/16 14:43 09/07/16 16:04 Bedside Glucose 142 155 145 Medications Medications Current Medications Ondansetron HCl (Zofran Inj) 4 mg Q6H PRN IV NAUSEA AND/OR VOMITING; Start 03/15 at 17:00 Morphine Sulfate (morphine) 2 mg Q4H PRN IV SEVERE PAIN LEVEL 7-10; Start 09/06 at 17:00 Pantoprazole 40 mg 40 mg DAILY@06 IV Last administered on 09/07/16 07:47; Admin Dose 40 MG; Start 09/07/16 at 06:00 Levetiracetam 100 ml @ 400 mls/hr Q12 IVPB Last administered on 09/07/16 08: 23; Admin Dose 400 MLS/HR; Start 09/06/16 at 21:00 Sodium Chloride 1,000 ml @ 75 mls/hr [id number] IV Last administered on 07:47; Admin Dose 75 MLS/HR; Start 09/07/16 at 07:00 Phenylephrine HCl 40 mg/Dextrose 500 ml @ 75 mls/hr TITRATE IV Last administered on 09/07/16 18:18; Admin Dose 75 MLS/HR; Start 09/07/16 at 17:30 Norepinephrine 250 ml @ 1.875 mls/ hr TITRATE IV Last administered on 5/12/ 17at 17:14; Admin Dose 3.75 MLS/HR; Start 09/07/16 at 17:00; Stop 09/07/16 at 23 :59 Norepinephrine/ Dextrose (Levophed/D5W) 500 ml @ 1.87 mls/hr TITRATE IV ; Start 09/08/16 at 00:00 SUZAN DREW September 07, 2016 18:57
[2016-09-07] MEDS: VASOPRESSIN 60 UNIT in DEXTROSE 5% 57 ML IV SCH (19:30)
[2016-09-08] VITALS (72 sets, daily range): BP systolic 45–131; BP diastolic 31–85; PULSE 70–222; RESP 22–26
[2016-09-08 02:02] LABS: CALCIUM 9.2 mg/dl (8.4-10.2); CREATININE 2.77 mg/dl (0.61-1.24)
[2016-09-08] MEDS: PHENYLephrine 40 MG in DEXTROSE 5% 496 ML IV SCH ×3 (02:44→16:08)
--- NOTE | 2016-09-08 04:50 | SP ---
DATE OF PROCEDURE: ELECTROENCEPHALOGRAM REFERRING PHYSICIAN: Dr. Cheng. TECHNIQUE: EEG done using 10-20 International electrode system with photic stimulation. FINDINGS: Bilateral occipital hemisphere view shows 1 to 2 Hz, delta waves, low amplitude, asymmetr ic bilateral. Photic stimulation done did elicit a drive. No epileptiform discharge or seizure act ivity is recorded. Some electromyogram artifact is recorded. IMPRESSION: The patient is 56 years old with severe encephalopathy, probably secondary to the under lying intracranial bleed. No epileptiform discharge or seizure activity is recorded. Followup EEG may be needed if clinically indicated. Again, thank you for asking me to see the patient with you. Dictated By: BENTLEY HOLBROOK MD NA/NTS Conf#: [id number] DID#: [id number] CC: SUZAN CHENG MD;*End*
[2016-09-08] MEDS: PANTOPRAZOLE 40 MG INJ IV SCH (05:20)
[2016-09-08 05:58] LABS: CREATININE 2.83 mg/dl (0.61-1.24)
[2016-09-08 06:01] LABS: POTASSIUM 2.8 mmol/L (3.5-5.1)
[2016-09-08] MEDS: DEXTROSE 5% 1,000 ML IV SCH ×2 (06:26→16:30)
[2016-09-08] MEDS: ACCU-CHEK XX SCH ×11 (06:55→17:00)
[2016-09-08] MEDS ORDERED: DEXTROSE 50% 50 ML SYRINGE IV PRN ×2 (07:00)
[2016-09-08] MEDS: VASOPRESSIN 60 UNIT in DEXTROSE 5% 57 ML IV SCH (07:30)
[2016-09-08] MEDS: INSULIN HUMAN REGULAR 100 UNIT in SOD CHLORIDE 0.9% 99 ML IV SCH ×2 (07:34→12:10)
[2016-09-08] MEDS: LEVETIRACETAM 500 MG (PMX) 100 ML IVPB SCH (08:56)
[2016-09-08] MEDS ORDERED: POTASSIUM CHLORIDE 250 ML IVPB ONE (09:30)
--- NOTE | 2016-09-08 11:37 | HP ---
DATE OF ADMISSION: 09/06/2016 REFERRING PHYSICIAN: Dr. Cheng. HISTORY OF PRESENT ILLNESS: The patient is 56 years old with multiple medical problems in the form of rheumatic heart disease, mitral valve replacement, aortic valve replacement, tricuspid valve repa ir. The patient was on Coumadin for his valve repair over the last 15 years. The patient admitted to [facility] and was unresponsive, in which I get the call about him today in which the bird pitts had CT scan of his head which showed large acute left frontoparietal intraparenchymal hemorrha ge with extension into the left and right lateral and third ventricle with subfalcine herniation 1.9 at the right side with midline shift. The patient has a right frontotemporal parietal craniotomy w ith underlying small area of the right frontal lobe. The patient's medication upon admission include: 1. Albuterol. 2. Aspirin. 3. Lipitor. 4. Coumadin. 5. Hydrochlorothiazide. 6. Ferrous sulfate. 7. Gabapentin. 8. Lantus. 9. Metoprolol. 10. Protonix. 11. Revatio. 12. Trazadone. 13. Humalog insulin. 14. Bumex. ALLERGIES: NO ALLERGIES FOR KNOWN MEDICATION. FAMILY HISTORY: Unavailable. SOCIAL HISTORY: Unavailable. PHYSICAL EXAMINATION: GENERAL: Today, the patient does not follow any verbal commands. CRANIAL NERVES: Cranial nerve II: Pupils with sluggish movement for light. Cranial nerves III, IV and : Extraocular muscles intact for doll's maneuver. Cranial nerves V and VII: Intact corneal reflex. Cranial nerves VIII through XII: Could not assess. MOTOR: Slight movement for painful stimuli. Sensation, gait and coordination: Could not assess. HEART: Regular rate and rhythm. LUNGS: Equal breath sounds. ABDOMEN: Soft, relaxed, nondistended. No tenderness. ASSESSMENT AND PLAN: 1. The patient is 56 years old with underlying intracranial hemorrhage with subfalcine herniation w ith midline shift to 1.9 cm. 2. Possibility of underlying seizure. Will follow up the patient with electroencephalogram as well as the patient on Keppra. We will continue the patient on that. 3. We keep the patient under deep venous thrombosis prophylaxis as well as decubitus ulcer prophyla xis. 4. History of diabetes. Keep the patient on sliding scale insulin as well as follow up the patient with Accu-Chek. 5. Decreased mini mental status with lack of communication with underlying coma secondary to subfal cine herniation and will follow up the patient with the CAT scan, neurosurgery evaluation as well as EEG. Thank you for asking me to see the patient with you. Dictated By: BENTLEY LARSEN/JOHN Conf#: [id number] DID#: [id number]
--- NOTE | 2016-09-08 14:04 | PN ---
Date/Time of Note Date/Time of Note DATE: 09/08/16 TIME: 14:03 Assessment/Plan VTE Prophylaxis VTE Prophylaxis Intervention: SCD's Assessment/Plan Chief Complaint/Hosp Course 1. Intracranial hemorrhage with likely brain and neurogenic shock -Neurosurgery consultation appreciated, no plans for surgery at this time as patient's prognosis -Continue pressor support, patient is a DNR 2. Acute respiratory failure secondary to intracranial hemorrhage -Continue vent support, pulmonology following 3. 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 Chronic kidney disease 5. History of multiple valve replacements on Coumadin -Will hold Coumadin secondary to intracranial hemorrhage. Prophylaxis-SCDs Problems: Subjective 24 Hr Interval Summary Subjective hx not possible: pt non-verbal Exam/Review of Systems Vital Signs Vitals Vital Signs Date Time Temp Pulse Resp B/P Pulse Ox O2 Delivery O2 Flow Rate FiO2 09/08/16 10:15 142 22 97/57 100 09/08/16 10:00 Mechanical Ventilator 09/08/16 08:00 99.8 09/08/16 08:00 40 Intake and Output 09/07/16 09/07/16 09/08/16 15:00 23:00 07:00 Intake Total 964.0 ml 1136.5 ml 1345.0 ml Output Total 1500 ml 590 ml 515 ml Balance -536.0 ml 546.5 ml 830.0 ml Exam Constitutional: non-verbal ENMT: intubated Respiratory: clear to auscultation Cardiovascular: regular rate and rhythm Gastrointestinal: soft, No distended Musculoskeletal: nl extremities to inspection Results Result Diagram: 09/07/16 0500 09/08/16 0500 Results 24 hrs Laboratory Tests Test 09/07/16 14:43 09/07/16 16:04 09/08/16 01:21 09/08/16 05:00 Bedside Glucose 155 145 Sodium Level 159 H 163 *H Potassium Level 3.0 L 2.8 *L Chloride Level 126 H 124 H Carbon Dioxide Level 25 24 Anion Gap 11 # 18 #H Blood Urea Nitrogen 87 H 86 H Creatinine 2.77 H 2.83 H Glucose Level 332 #H 408 *H Calcium Level 9.2 9.0 Test 09/08/16 05:44 09/08/16 06:55 09/08/16 08:25 09/08/16 09:10 Lab Scanned Report BLOOD TRANSFUSION Bedside Glucose 395 H 417 *H 410 *H Test 09/08/16 10:11 09/08/16 11:14 09/08/16 12:07 09/08/16 13:08 Bedside Glucose 389 H 345 H 312 H 258 H Medications Medications Current Medications Ondansetron HCl (Zofran Inj) 4 mg Q6H PRN IV NAUSEA AND/OR VOMITING; Start 03/15 at 17:00 Morphine Sulfate (morphine) 2 mg Q4H PRN IV SEVERE PAIN LEVEL 7-10; Start 09/06 at 17:00 Pantoprazole 40 mg 40 mg DAILY@06 IV Last administered on 09/08/16 05:20; Admin Dose 40 MG; Start 09/07/16 at 06:00 Levetiracetam 100 ml @ 400 mls/hr Q12 IVPB Last administered on 09/08/16 08: 56; Admin Dose 400 MLS/HR; Start 09/06/16 at 21:00 Phenylephrine HCl 40 mg/Dextrose 500 ml @ 75 mls/hr TITRATE IV Last administered on 09/08/16 12:11; Admin Dose 52.5 MLS/HR; Start 09/07/16 at 17:30 Norepinephrine 16 mg/Dextrose 500 ml @ 1.87 mls/hr TITRATE IV Last administered on 09/08/16 12:13; Admin Dose 37.5 MLS/HR; Start 09/08/16 at 00:00 Vasopressin 60 unit/Dextrose 60 ml @ 1.2 mls/hr Q12H IV ; Start 09/07/16 at 19: 30 Dextrose (D5W) 1,000 ml @ 100 mls/hr Q10H IV Last administered on 09/08/16 06 :26; Admin Dose 100 MLS/HR; Start 09/08/16 at 06:30 Diagnostic Test (Pha) (Accu-Chek) 1 ea Q1H XX Last administered on 09/08/16 13 :09; Admin Dose 1 EA; Start 09/08/16 at 07:00 Dextrose (D50w Syringe) 25 ml Q15M PRN IV Till BS 80 mg/dL or above x2; Start 09/08/16 at 07:00 Dextrose (D50w Syringe) 50 ml Q15M PRN IV Till BS 80 mg/dL or above x2; Start 09/08/16 at 07:00 SUZAN DREW September 08, 2016 14:04
--- NOTE | 2016-09-08 14:38 | CONS ---
Date/Time of Note Date/Time of Note DATE: 09/08/16 TIME: 14:29 Consult Date/Type/Reason Admit Date/Time September 06, 2016 at 16:45 Initial Consult Date Type of Consultation: Pulm/CCM Subjective Clear evidence of brainstem herniation. Now no GAG, no corneals, pupils fixed and dilated. Objective Vital Signs Date Time Temp Pulse Resp B/P Pulse Ox O2 Delivery O2 Flow Rate FiO2 09/08/16 12:00 189 09/08/16 10:15 22 97/57 100 09/08/16 10:00 Mechanical Ventilator 09/08/16 08:00 99.8 09/08/16 08:00 40 Intake and Output 09/07/16 09/07/16 09/08/16 15:00 23:00 07:00 Intake Total 964.0 ml 1136.5 ml 1345.0 ml Output Total 1500 ml 590 ml 515 ml Balance -536.0 ml 546.5 ml 830.0 ml Exam CARDIAC: S1, S2, tachycardia. CHEST: Diminished air entry bilaterally. ABDOMEN: Soft, nontender. No guarding or rebound. EXTREMITIES: No cyanosis, clubbing, edema. NEURO: Flaccid; No GAG; no corneal Results/Medications Result Diagram: 09/07/16 0500 09/08/16 0500 Results 24 hrs Laboratory Tests Test 09/07/16 14:43 09/07/16 16:04 09/08/16 01:21 09/08/16 05:00 Bedside Glucose 155 145 Sodium Level 159 H 163 *H Potassium Level 3.0 L 2.8 *L Chloride Level 126 H 124 H Carbon Dioxide Level 25 24 Anion Gap 11 # 18 #H Blood Urea Nitrogen 87 H 86 H Creatinine 2.77 H 2.83 H Glucose Level 332 #H 408 *H Calcium Level 9.2 9.0 Test 09/08/16 05:44 09/08/16 06:55 09/08/16 08:25 09/08/16 09:10 Lab Scanned Report BLOOD TRANSFUSION Bedside Glucose 395 H 417 *H 410 *H Test 09/08/16 10:11 09/08/16 11:14 09/08/16 12:07 09/08/16 13:08 Bedside Glucose 389 H 345 H 312 H 258 H Medications Current Medications Ondansetron HCl (Zofran Inj) 4 mg Q6H PRN IV NAUSEA AND/OR VOMITING; Start 03/15 at 17:00 Morphine Sulfate (morphine) 2 mg Q4H PRN IV SEVERE PAIN LEVEL 7-10; Start 09/06 at 17:00 Pantoprazole 40 mg 40 mg DAILY@06 IV Last administered on 09/08/16 05:20; Admin Dose 40 MG; Start 09/07/16 at 06:00 Levetiracetam 100 ml @ 400 mls/hr Q12 IVPB Last administered on 09/08/16 08: 56; Admin Dose 400 MLS/HR; Start 09/06/16 at 21:00 Phenylephrine HCl 40 mg/Dextrose 500 ml @ 75 mls/hr TITRATE IV Last administered on 09/08/16 12:11; Admin Dose 52.5 MLS/HR; Start 09/07/16 at 17:30 Norepinephrine 16 mg/Dextrose 500 ml @ 1.87 mls/hr TITRATE IV Last administered on 09/08/16 12:13; Admin Dose 37.5 MLS/HR; Start 09/08/16 at 00:00 Vasopressin 60 unit/Dextrose 60 ml @ 1.2 mls/hr Q12H IV ; Start 09/07/16 at 19: 30 Dextrose (D5W) 1,000 ml @ 100 mls/hr Q10H IV Last administered on 09/08/16 06 :26; Admin Dose 100 MLS/HR; Start 09/08/16 at 06:30 Diagnostic Test (Pha) (Accu-Chek) 1 ea Q1H XX Last administered on 09/08/16 14 :22; Admin Dose 1 EA; Start 09/08/16 at 07:00 Dextrose (D50w Syringe) 25 ml Q15M PRN IV Till BS 80 mg/dL or above x2; Start 09/08/16 at 07:00 Dextrose (D50w Syringe) 50 ml Q15M PRN IV Till BS 80 mg/dL or above x2; Start 09/08/16 at 07:00 Assessment/Plan Additional Assessment/Plan IMPRESSION: 1. Catastrophic intracerebral bleed with evidence of herniation with a Flaquita' s response. Clinical findings c/w brain RECS: 1. I had a long discussion with family and informed them of my impressions, letting them know that it is okay if they so decide to discontinue pressors and extubate. Having said that, I informed them that if they need more time to come to terms with this. continuation of current care for a short period is also reasonable. 35 min cc time BENTLEY KOWALSKI MD September 08, 2016 14:38
--- NOTE | 2016-09-08 23:23 | CONS ---
DATE OF ADMISSION: 09/06/2016 DATE OF CONSULTATION: 09/08/2016 Patient has no heart sounds. His pupils are dilated, nonreactive to light. No movement to painful stimuli. His EKG on the telemetry is flat lined. The patient has no gag reflex. The patient does not do any breathing over the vent. Cornea reflex is absent. He was DNR. He was pronounced a t 6 p.m. Dictated By: BENTLEY LARSEN/NTS Conf#: [id number] DID#: [id number]
--- NOTE | 2016-09-09 20:48 | DS ---
DATE OF ADMISSION: 09/06/2016 DATE OF DISCHARGE: 09/08/2016 DIAGNOSIS: Cardiopulmonary arrest secondary to intracranial hemorrhage. SECONDARY DIAGNOSES: 1. Diabetes. 2. Chronic kidney disease. 3. Valvular heart disease. HOSPITAL COURSE: The patient is a 56-year-old male with a history of rheumatic heart disease, statu s post mitral valve replacement as well as aortic valve replacement and tricuspid valve repair. The patient also has CKD and diabetes. The patient has been on Coumadin for many years secondary to hi s valve repairs. The patient presented with altered mental status. He was found to have significan t intracranial hemorrhage. He was seen by Dr. East of neurosurgery and, because of patient's poor prognosis, it was felt that he is not a candidate for surgery. The patient's subsequent brain CT sh ows expansion of his hemorrhage. Dr. East explained surgery would have been futile, as his prognos is was very poor. The patient was displaying signs of brain with dilated and fixed pupils and had displays of any reflexes as well. The patient became hypotensive with tachycardia and went int o neurogenic shock. He was initially put on pressors. The family decided to keep the patient DNR. Ultimately, the patient succumbed to his illnesses and the patient was pronounced by the neurologis t, Dr. Kothari, on 09/08/2016. Dictated By: SUZAN DREW MD BS/NTS Conf#: [id number] DID#: [id number]
--- NOTE | 2016-09-10 11:36 | CONS ---
DATE OF ADMISSION: 09/06/2016 DATE OF CONSULTATION: 09/06/2016 REQUESTING PHYSICIAN: Dr. Brewer with the Emergency Department. CONSULTING SERVICE: Neurosurgery. HISTORY OF PRESENT ILLNESS: The patient is a 56-year-old male with multiple medical problems includ ing diabetes, chronic kidney disease with rheumatic heart disease, status post mitral valve replacem ent, tricuspid valve replacement and most recently about a month ago, status post transvenous aortic valve replacement. The patient has a combination of both artificial as well as bovine valve replac ements and has been on Coumadin because of it. The patient has also had a prior right-sided craniot adrian for evacuation of a subdural hematoma that was related to effects of anticoagulation several yea rs ago. The patient did recover from the subdural hematoma evacuation. After the patient underwent his aortic valve replacement about a month ago the patient was initially discharged but then he had to be readmitted this past week for workup of anemia. According to the patient's family whom I hav e spoken to in extensive detail for more than an hour initially, the patient was also having bloody discharge from his gastrointestinal system and even some bleeding from the site of the catheterizati on for the aortic valve replacement. The patient was eventually discharged home, and he started com plaining of lightheadedness and dizziness about a day or 2 ago and earlier today the patient gradual ly became further altered until the point where he was brought to the emergency department completel y unresponsive. The patient was then intubated. The patient was not following commands from the ti me of arrival, according to my discussion with the emergency physician, Dr. Brewer. PAST MEDICAL HISTORY: As noted above plus hyperlipidemia and hypertension. There is also a reporte d history of a pacemaker placement in the past. HOME MEDICATIONS: Have been reviewed and attached to the chart, including Coumadin. ALLERGIES: NO KNOWN DRUG ALLERGIES. FAMILY HISTORY: Noncontributory. SOCIAL HISTORY: The family denies that the patient smokes tobacco. They denied that he uses alcoho lic beverages or uses illicit or recreational drugs. REVIEW OF SYSTEMS: Cannot be obtained as the patient is completely unresponsive. PHYSICAL EXAMINATION: GENERAL: The patient has been evaluated in the emergency department at bedside. The patient is int ubated. He is on the ventilator. He is not overbreathing the ventilator. He is not on any sedatio n. NEUROLOGIC: No eye opening. His pupils are 3 mm bilaterally and sluggish. The patient has subtle bilateral corneal reflex. His face is symmetric. He has no movement to pain of his bilateral upper and lower extremities. He does not follow commands. Deep tendon reflexes are 1+ bilateral upper a nd lower extremities. IMAGING STUDIES: The patient has a CT of the head without contrast that shows evidence of a prior r ight-sided frontoparietal craniotomy with plates. The patient now has a large intraparenchymal hemo rrhage involving the left frontoparietal area that is almost 10 cm in the greatest dimension. The lynette olguin also has a left to right midline shift of greater than 1.5 cm. The basal cisterns are at glen st partially effaced. ASSESSMENT AND PLAN: This is a middle-aged male with unfortunately multiple serious medical problem s including valvular heart disease, status post multiple valve replacements as noted above as well a s diabetes, hypertension and chronic kidney disease. The patient now comes in with left frontoparie presley parenchymal hemorrhage on his dominant side. (The patient is right-handed) most likely related to coagulopathy from his anticoagulation. His INR is 4.25. As I have explained in great detail to the patient's family including his and several children including his daughter's and his son th e patient is critically ill. His hemorrhage is on the dominant side and it is very large and life t hreatening. The patient already has significant aegy-cl-ptdjd midline shift. He has already been i ntubated as part of supportive care. As I have also discussed in great detail with Dr. Brewer the lynette olguin's coagulopathy is being aggressively corrected and he is receiving 4 units of FFP to begin wi . That is the most important part of his treatment for now. He has also received 50 grams of man nitol and has had a central line placed, and has been started on hypertonic 3% sodium solution to he lp minimize cerebral edema and bring down his intracranial pressure. Unfortunately, at this point n eurosurgical intervention would not be a good idea as the patient is highly coagulopathic and any ty pe of surgical intervention including an evacuation of the hematoma or doing a decompressive hemicra niectomy on the left would most likely cause further hemorrhage and worsen the problem. I have expl ained to the patient that once we can correct the coagulopathy doing further aggressive treatment todd ch as a hemicraniectomy or even evacuation of the hematoma would be an option, although, the questio n is what our end goal would be. The patient's family has asked me what is the chance the patient lydia wolfe able to be discharged home back to his normal status. As I have explained to them I would not be able to say 0%; however, the chances of that would be close to zero, as the patient has had irrev ersible hemorrhagic stroke involving his left frontoparietal area on the dominant hemisphere that co uld cause aphasia and at the very minimum, right dense hemiplegia. The goal of a hemicraniectomy on ce the coagulopathy has been corrected would be to decrease the chance of the patient passing away a s a result of transtentorial herniation but will not be able to reverse the injury. The patient's f amily will decide as to what the patient's wishes would be as the patient does not have an advanced directive according to the family. The patient will continue receiving the hypertonic saline. He w ill be going to the intensive care unit. I have discussed the patient's management further with Dr. Brewer as well as Dr. Cheng the admitting hospitalist. Given the patient's other severe comorbid ities as mentioned above, the patient's prognosis also further remains grim. The patient has a foll owup head CT ordered 6 hours from now. I have spoken to the patient's family for more than 1 hour, and they will be following up with me with any further questions. Dictated By: JULISSA CAREY MD, SA/JOHN Conf#: [id number] DID#: [id number]
--- NOTE | 2016-09-10 11:41 | CONS ---
DATE OF ADMISSION: 09/06/2016 DATE OF CONSULTATION: 09/07/2016 SUBJECTIVE: The patient is now in the intensive care unit. He remains intubated. He is not on any sedation. The patient is completely unresponsive. He has no eye opening spontaneously or to pain. He has no movement of his upper and lower extremities to pain. His pupils are now 5 to 6 mm bilat erally dilated and fixed. The patient has no gag reflex and he has no corneal reflex. Despite sherry ng received 6 units of FFP, the patient's INR is still not fully reversed. It is over 1.3. The [facility] is now receiving another unit of FFP. The patient's serum sodium went over 150 as he was recei ving the hypertonic saline solution. The 3% saline has been stopped and the patient has now been sw itched to 0.5% saline to bring it down to a range of 145 to 150 for the serum sodium. The patient has now also received a followup head CT has had been requested before. The followup he ad CT shows further extension of the hemorrhage. As the radiologist has reported, the volume of the hemorrhage increased from 164 previously to 177 mL now. The patient's mgtn-ly-kxxiq midline shift is measured at 1.9 cm. I have explained it again in great detail to the patient's children as well as a gentleman who identifies himself as the patient's brother, that unfortunately, the patient's cl inical status has further worsened as was feared despite very aggressive treatment with FFP, his coa gulopathy still remains to be fully corrected and is again being corrected. ASSESSMENT: At this point, the patient is already showing signs of transtentorial herniation which is usually considered to be irreversible. Any surgical intervention at this point would not be edwardo cated and would not be able to help the patient. The patient's prognosis again remains very poor gi sharda his severe left-sided intraparenchymal hemorrhage with a very large left to right midline shift on the dominant hemisphere together with his coagulopathy and his many significant comorbidities inc luding hypertension, diabetes, and chronic kidney disease. The patient's family fully understands t he above discussion. I have explained to the patient's family that patient can continue to receive supportive treatment for now and they can further decide as to how much further supportive care the patient should receive. I have also explained to the patient's family that they can ask the nurse t o contact me to discuss any further questions should they arise. Dictated By: JULISSA CAREY MD, SA/JOHN Conf#: [id number] DID#: [id number]
--- NOTE | 2016-09-10 21:06 | DES ---
DATE OF ADMISSION: 09/06/2016 DATE OF : 09/08/2016 DIAGNOSIS: Cardiopulmonary arrest secondary to intracranial hemorrhage. SECONDARY DIAGNOSES: 1. Diabetes. 2. Chronic kidney disease. 3. Valvular heart disease. HOSPITAL COURSE: The patient is a 56-year-old male with a history of rheumatic heart disease, statu s post mitral valve replacement as well as aortic valve replacement and tricuspid valve repair. The patient also has CKD and diabetes. The patient has been on Coumadin for many years secondary to hi s valve repairs. The patient presented with altered mental status. He was found to have significan t intracranial hemorrhage. He was seen by Dr. East of neurosurgery and, because of patient's poor prognosis, it was felt that he is not a candidate for surgery. The patient's subsequent brain CT sh ows expansion of his hemorrhage. Dr. East explained surgery would have been futile, as his prognos is was very poor. The patient was displaying signs of brain with dilated and fixed pupils and had displays of any reflexes as well. The patient became hypotensive with tachycardia and went int o neurogenic shock. He was initially put on pressors. The family decided to keep the patient DNR. Ultimately, the patient succumbed to his illnesses and the patient was pronounced by the neurologis t, Dr. Kothari, on 09/08/2016. Dictated By: SUZAN DREW MD BS/NTS Conf#: [id number] DID#: [id number]
== END 2016-09-08 21:00 | disposition expired | DRG 64 ==
LOC: E/R 12:05 → ICU 16:45
PROVIDERS: ADMIT Internal Medicine; ATTEND Internal Medicine
PROC: 0BH17EZ Insertion of Endotracheal Airway into Trachea, Via Natural or Artificial Opening (ICD-10-PCS; principal; 2016-09-06)
PROC: 5A1945Z Respiratory Ventilation, 24-96 Consecutive Hours (ICD-10-PCS; 2016-09-06)
PROC: 30233K1 Transfusion of Nonautologous Frozen Plasma into Peripheral Vein, Percutaneous Approach (ICD-10-PCS; 2016-09-06)
PROC: 30233K1 Transfusion of Nonautologous Frozen Plasma into Peripheral Vein, Percutaneous Approach (ICD-10-PCS; 2016-09-07)
DX: I61.9 Nontraumatic intracerebral hemorrhage, unspecified (principal); J96.00 Acute respiratory failure, unspecified whether with hypoxia or hypercapnia; G93.40 Encephalopathy, unspecified; E23.2 Diabetes insipidus; I12.9 Hypertensive chronic kidney disease with stage 1 through stage 4 chronic kidney disease, or unspecified chronic kidney disease; E11.22 Type 2 diabetes mellitus with diabetic chronic kidney disease; N18.9 Chronic kidney disease, unspecified; E78.5 Hyperlipidemia, unspecified; D64.9 Anemia, unspecified; Z66 Do not resuscitate; Z79.4 Long term (current) use of insulin; Z79.82 Long term (current) use of aspirin; Z79.01 Long term (current) use of anticoagulants; Z95.2 Presence of prosthetic heart valve; Z95.0 Presence of cardiac pacemaker
CPT/HCPCS: 31500; 36415; 36430; 36600; 70450; 71010; 80048; 80053; 80061; 80307; 81001; 81003; 82803; 82947; 82962; 83036; 83735; 84100; 84132; 84484; 85025; 85610; 85730; 86850; 86900; 86901; 87081; 93005; 93306; 94002; 94003; 94770; 96361; 96365; 96375; C1751; C9113; J1815; J1953; J2001; J2150; J3480; J7030; J7040; J7060; J7070; P9059